=== PATIENT | male | born 1930 | race African-American/Black ===

== ENCOUNTER 2020-05-30 14:31 | Inpatient (IN) | payer OTHER ==
[~2020-05-30] VITALS: Ht 180.3 cm; Wt 95.2 kg
[2020-05-30 17:04] LABS: Basophils # (auto) 0 10 ^3/uL (0-0.2); Eosinophils # (auto) 0 10 ^3/uL (0-0.8); Hematocrit 32.6 % (41.0-53.0); Mean Corpuscular Hemoglobin 26.9 pg (28.0-32.0); Mean Corpuscular Hgb Conc. 32.4 g/dL (32.0-36.0); Monocytes # (auto) 0.5 10 ^3/uL (0-1.3); White Blood Cell 6.1 10^3/uL (4.4-10.8)
[2020-05-30 17:06] LABS: Basophils % (auto) 0.1 % (0.0-2.0); Eosinophils % (auto) 0.8 % (0.0-7.0); Hemoglobin 10.6 g/dL (13.5-17.5); Lymphocytes % (auto) 15.9 % (10.0-50.0); Mean Corpuscular Volume 83.1 fL (80.0-100.0); Monocytes % (auto) 8.6 % (0.0-12.0); Neutrophils # (auto) 4.6 10 ^3/uL (1.6-8.6); Neutrophils % (auto) 74.6 % (37.0-80.0); Platelet Count (auto) 102 10^3/uL (140-450); Red Blood Cells 3.92 10^6/uL (4.5-5.90); Red Cell Distribution Width 18.3 % (11.8-14.3)
[2020-05-30 17:14] LABS: Albumin 3.4 g/dL (3.4-5.0); BUN/Creatinine Ratio 19.2; Calcium 8.2 mg/dL (8.5-10.1)
[2020-05-30 17:19] LABS: Bilirubin, Total 0.8 mg/dL (0.2-1.0); Total Protein 7.3 g/dL (6.4-8.2)
[2020-05-30 17:24] LABS: INR 3.58 (0.9-1.15); Partial Thromboplastin Time 36.2 sec (23.0-31.2)
[2020-05-30 19:02] LABS: Urine Bacteria NONE SEEN /hpf (None Seen); Urine Blood Negative /uL (Negative); Urine Mucus FEW (None Seen); Urine WBC 1 /hpf (0 - 3)
[2020-05-30] MEDS ORDERED: ONDANSETRON HCL 4 MG/2 ML VIAL IV PRN (21:15)
[2020-05-30] MEDS ORDERED: MORPHINE SULF INJ 2 MG/ML SYRINGE 1ML IV PRN (21:15)
[2020-05-30] MEDS ORDERED: NITROGLYCERIN 0.4 MG SL TAB SL PRN (21:15)
[2020-05-30] MEDS ORDERED: ACETAMINOPHEN 325 MG TAB PO PRN (21:15)
[2020-05-30] MEDS ORDERED: TEMAZEPAM 15 MG CAP PO PRN (21:15)
[2020-05-30] MEDS ORDERED: ATORVASTATIN 20 MG TAB PO SCH (22:00)
[2020-05-31 06:37] LABS: Basophils # (auto) 0 10 ^3/uL (0-0.2); Eosinophils # (auto) 0 10 ^3/uL (0-0.8); Lymphocytes # (auto) 1.1 10 ^3/uL (0.4-5.4); Monocytes # (auto) 0.4 10 ^3/uL (0-1.3); Nucleated Red Blood Cells % 0.1 %
[2020-05-31 06:39] LABS: Eosinophils % (auto) 0.5 % (0.0-7.0); Hemoglobin 10.7 g/dL (13.5-17.5); Mean Corpuscular Hemoglobin 26.9 pg (28.0-32.0); Mean Corpuscular Hgb Conc. 32.3 g/dL (32.0-36.0); Mean Corpuscular Volume 83.2 fL (80.0-100.0); Monocytes % (auto) 6.7 % (0.0-12.0); Neutrophils # (auto) 4.5 10 ^3/uL (1.6-8.6); Neutrophils % (auto) 74.8 % (37.0-80.0); Platelet Count (auto) 108 10^3/uL (140-450); Red Blood Cells 3.97 10^6/uL (4.5-5.90)
[2020-05-31 07:02] LABS: Potassium 4.6 mmol/L (3.5-5.1)
[2020-05-31 07:03] LABS: INR 3.68 (0.9-1.15)
[2020-05-31 07:15] LABS: BUN/Creatinine Ratio 18.2; Calcium 8.8 mg/dL (8.5-10.1)
[2020-05-31] MEDS ORDERED: FUROSEMIDE 40 MG TAB PO SCH (10:00)
[2020-05-31] MEDS: METOPROLOL TARTRATE 25 MG TAB PO SCH ×2 (10:29→21:54)
[2020-05-31] MEDS: FAMOTIDINE 20 MG TAB PO SCH (10:30)
[2020-05-31] MEDS ORDERED: AZITHROMYCIN 500MG/ 250ML 250 ML IV ONE (13:15)
[2020-05-31] MEDS ORDERED: cefTRIAXone 1GM/50ML D5W 50 ML IV ONE (13:15)
[2020-05-31] MEDS: FUROSEMIDE 40 MG/4 ML VIAL IV SCH (18:13)
[2020-05-31] MEDS: ATORVASTATIN 20 MG TAB PO SCH (21:54)
[2020-05-31 22:00] VITALS: BP 103/53
[2020-05-31] MEDS ORDERED: LORazepam 2MG/ML-1ML VIAL IV PRN (22:00)
[2020-06-01 05:00] VITALS: BP 119/63
[2020-06-01] MEDS: FUROSEMIDE 40 MG/4 ML VIAL IV SCH ×2 (05:37→17:59)
[2020-06-01 06:38] LABS: Basophils # (auto) 0 10 ^3/uL (0-0.2); Basophils % (auto) 0.2 % (0.0-2.0); Hemoglobin 10.7 g/dL (13.5-17.5); Mean Corpuscular Volume 83.3 fL (80.0-100.0)
[2020-06-01 06:40] LABS: Eosinophils # (auto) 0.2 10 ^3/uL (0-0.8); Eosinophils % (auto) 4.1 % (0.0-7.0); Lymphocytes # (auto) 1.6 10 ^3/uL (0.4-5.4); Lymphocytes % (auto) 29.1 % (10.0-50.0); Mean Corpuscular Hgb Conc. 32.4 g/dL (32.0-36.0); Monocytes # (auto) 0.6 10 ^3/uL (0-1.3); Monocytes % (auto) 10.6 % (0.0-12.0); Neutrophils # (auto) 3.1 10 ^3/uL (1.6-8.6); Nucleated Red Blood Cells % 0.2 %; Platelet Count (auto) 110 10^3/uL (140-450); Red Blood Cells 3.96 10^6/uL (4.5-5.90); Red Cell Distribution Width 18.5 % (11.8-14.3); White Blood Cell 5.6 10^3/uL (4.4-10.8)
[2020-06-01 06:43] LABS: INR 3.64 (0.9-1.15)
[2020-06-01 07:02] LABS: Albumin 3.1 g/dL (3.4-5.0)
[2020-06-01 07:15] LABS: Cholesterol 109 mg/dL (< 200); HDL Cholesterol 68 mg/dL (40-59); LDL Cholesterol 37 mg/dL (< 100); Triglycerides 69 mg/dL (< 150)
[2020-06-01] MEDS ORDERED: ADENOSINE 87 MG in GIVE UN-DILUTED 0 ML IV STA (08:23)
[2020-06-01 09:27] LABS: Folate (Folic Acid) 13.08 ng/mL (5.38-24)
[2020-06-01] MEDS: FAMOTIDINE 20 MG TAB PO SCH (10:35)
[2020-06-01] MEDS: AZITHROMYCIN 500MG/ 250ML 250 ML IV SCH (10:35)
[2020-06-01] MEDS: cefTRIAXone 1GM/50ML D5W 50 ML IV SCH (10:35)
[2020-06-01] MEDS: METOPROLOL TARTRATE 25 MG TAB PO SCH ×2 (10:45→22:42)
[2020-06-01 13:00] VITALS: BP 101/44
[2020-06-01 17:06] VITALS: BP 148/74
[2020-06-01] MEDS: ALBUTEROL SULF 2.5 MG/0.5ML(0.5%) NEB SOLN NEB SCH (18:42)
[2020-06-01] MEDS: IPRATROPIUM BROM 0.5 MG/2.5ML INH SOL NEB SCH (18:42)
[2020-06-01 22:00] VITALS: BP 160/92
[2020-06-01] MEDS: ATORVASTATIN 20 MG TAB PO SCH (22:42)
[2020-06-02 05:00] VITALS: BP 119/67
[2020-06-02] MEDS: FUROSEMIDE 40 MG/4 ML VIAL IV SCH ×2 (05:41→18:05)
[2020-06-02] MEDS: ALBUTEROL SULF 2.5 MG/0.5ML(0.5%) NEB SOLN NEB SCH ×3 (06:08→19:43)
[2020-06-02] MEDS: IPRATROPIUM BROM 0.5 MG/2.5ML INH SOL NEB SCH ×3 (06:08→19:44)
[2020-06-02 07:00] LABS: Basophils # (auto) 0 10 ^3/uL (0-0.2); Eosinophils # (auto) 0.2 10 ^3/uL (0-0.8); Hemoglobin 11.2 g/dL (13.5-17.5)
[2020-06-02 07:02] LABS: Basophils % (auto) 0.6 % (0.0-2.0); Eosinophils % (auto) 4.1 % (0.0-7.0); Hematocrit 34.3 % (41.0-53.0); Lymphocytes # (auto) 1.4 10 ^3/uL (0.4-5.4); Lymphocytes % (auto) 26.1 % (10.0-50.0); Mean Corpuscular Hemoglobin 26.8 pg (28.0-32.0); Mean Corpuscular Hgb Conc. 32.6 g/dL (32.0-36.0); Mean Corpuscular Volume 82.4 fL (80.0-100.0); Monocytes # (auto) 0.7 10 ^3/uL (0-1.3); Monocytes % (auto) 12.2 % (0.0-12.0); Neutrophils # (auto) 3.1 10 ^3/uL (1.6-8.6); Nucleated Red Blood Cells % 0.2 %; Platelet Count (auto) 118 10^3/uL (140-450); Red Blood Cells 4.16 10^6/uL (4.5-5.90); Red Cell Distribution Width 18.4 % (11.8-14.3); White Blood Cell 5.5 10^3/uL (4.4-10.8)
[2020-06-02 07:20] LABS: Albumin 3.3 g/dL (3.4-5.0); Calcium 8.7 mg/dL (8.5-10.1); Potassium 4.3 mmol/L (3.5-5.1)
[2020-06-02 07:26] LABS: BUN/Creatinine Ratio 25.5; Bilirubin, Total 0.9 mg/dL (0.2-1.0); Total Protein 7.2 g/dL (6.4-8.2)
[2020-06-02 09:00] VITALS: BP 134/66
[2020-06-02] MEDS: cefTRIAXone 1GM/50ML D5W 50 ML IV SCH (09:30)
[2020-06-02] MEDS: FAMOTIDINE 20 MG TAB PO SCH (09:31)
[2020-06-02] MEDS: METOPROLOL TARTRATE 25 MG TAB PO SCH ×2 (09:31→22:23)
[2020-06-02] MEDS ORDERED: PHYTONADIONE(VitK) ORAL Susp 10mg/10ml(1mg/ml) PO ONE (10:15)
[2020-06-02] MEDS ORDERED: METO25TA93 PO (10:25)
[2020-06-02] MEDS ORDERED: ASCO500T11 PO (10:25)
[2020-06-02] MEDS ORDERED: FERR-7 PO (10:25)
[2020-06-02] MEDS ORDERED: MAGN400T40 PO (10:25)
[2020-06-02] MEDS ORDERED: LOSA-69 PO (10:25)
[2020-06-02] MEDS ORDERED: OMEP20TA PO (10:25)
[2020-06-02] MEDS ORDERED: WARF5TAB71 PO (10:25)
[2020-06-02] MEDS ORDERED: POTA1TAB61 PO (10:25)
[2020-06-02] MEDS ORDERED: FURO1TAB31 PO (10:25)
[2020-06-02] MEDS ORDERED: CYAN500T25 PO (10:25)
[2020-06-02] MEDS ORDERED: SIMV-13 PO (10:25)
[2020-06-02] MEDS ORDERED: CHOL20007 PO (10:25)
[2020-06-02] MEDS ORDERED: WARF2.5T39 PO (10:25)
[2020-06-02] MEDS ORDERED: ALBUAER3 IN (10:26)
[2020-06-02] MEDS ORDERED: FLUT250M2 INH (10:26)
[2020-06-02] MEDS ORDERED: ALBU2SYP10 PO (10:26)
[2020-06-02] MEDS: AZITHROMYCIN 500MG/ 250ML 250 ML IV SCH (11:16)
[2020-06-02 13:00] VITALS: BP 133/77
[2020-06-02 17:00] VITALS: BP 131/73
[2020-06-02 22:00] VITALS: BP 120/66
[2020-06-02] MEDS: ATORVASTATIN 20 MG TAB PO SCH (22:22)
[2020-06-03 05:00] VITALS: BP 110/53
[2020-06-03] MEDS: FUROSEMIDE 40 MG/4 ML VIAL IV SCH ×2 (06:09→18:16)
[2020-06-03] MEDS: ALBUTEROL SULF 2.5 MG/0.5ML(0.5%) NEB SOLN NEB SCH ×3 (06:33→18:33)
[2020-06-03] MEDS: IPRATROPIUM BROM 0.5 MG/2.5ML INH SOL NEB SCH ×3 (06:34→18:33)
[2020-06-03 07:53] LABS: Basophils # (auto) 0 10 ^3/uL (0-0.2); Basophils % (auto) 0.5 % (0.0-2.0); Eosinophils # (auto) 0.2 10 ^3/uL (0-0.8); Monocytes # (auto) 0.6 10 ^3/uL (0-1.3); White Blood Cell 4.8 10^3/uL (4.4-10.8)
[2020-06-03 07:56] LABS: Eosinophils % (auto) 5.1 % (0.0-7.0); Hematocrit 35.2 % (41.0-53.0); Hemoglobin 11.3 g/dL (13.5-17.5); Lymphocytes # (auto) 1.2 10 ^3/uL (0.4-5.4); Lymphocytes % (auto) 25.1 % (10.0-50.0); Mean Corpuscular Hemoglobin 26.6 pg (28.0-32.0); Monocytes % (auto) 13.3 % (0.0-12.0); Neutrophils # (auto) 2.7 10 ^3/uL (1.6-8.6); Nucleated Red Blood Cells % 0.2 %; Platelet Count (auto) 119 10^3/uL (140-450); Red Blood Cells 4.24 10^6/uL (4.5-5.90); Red Cell Distribution Width 18.2 % (11.8-14.3)
[2020-06-03 08:04] LABS: INR 1.87 (0.9-1.15)
[2020-06-03 08:10] LABS: BUN/Creatinine Ratio 24.5; Calcium 8.7 mg/dL (8.5-10.1); Potassium 3.5 mmol/L (3.5-5.1)
[2020-06-03 09:00] VITALS: BP 127/77
[2020-06-03] MEDS: FAMOTIDINE 20 MG TAB PO SCH (09:22)
[2020-06-03] MEDS: cefTRIAXone 1GM/50ML D5W 50 ML IV SCH (09:22)
[2020-06-03] MEDS: METOPROLOL TARTRATE 25 MG TAB PO SCH ×2 (09:22→22:26)
[2020-06-03] MEDS: PHYTONADIONE(VitK) ORAL Susp 10mg/10ml(1mg/ml) PO SCH (09:23)
[2020-06-03] MEDS: AZITHROMYCIN 500MG/ 250ML 250 ML IV SCH (10:52)
[2020-06-03 13:00] VITALS: BP 101/44
[2020-06-03 17:00] VITALS: BP 120/57
[2020-06-03 22:00] VITALS: BP 117/65
[2020-06-03] MEDS: ENOXAPARIN SOD 30 MG/0.3 ML SYRINGE SC SCH (22:25)
[2020-06-03] MEDS: ATORVASTATIN 20 MG TAB PO SCH (22:25)
[2020-06-04 05:00] VITALS: BP 117/59
[2020-06-04] MEDS: FUROSEMIDE 40 MG/4 ML VIAL IV SCH ×2 (05:31→18:24)
[2020-06-04] MEDS: ALBUTEROL SULF 2.5 MG/0.5ML(0.5%) NEB SOLN NEB SCH ×2 (06:00→19:08)
[2020-06-04] MEDS: IPRATROPIUM BROM 0.5 MG/2.5ML INH SOL NEB SCH ×2 (06:00→19:08)
[2020-06-04 06:10] LABS: Basophils # (auto) 0.1 10 ^3/uL (0-0.2); Hematocrit 36.1 % (41.0-53.0); Hemoglobin 11.6 g/dL (13.5-17.5); Mean Corpuscular Hgb Conc. 32.3 g/dL (32.0-36.0); Monocytes # (auto) 0.6 10 ^3/uL (0-1.3); Nucleated Red Blood Cells % 0.1 %
[2020-06-04 06:13] LABS: Basophils % (auto) 1.2 % (0.0-2.0); Eosinophils # (auto) 0.3 10 ^3/uL (0-0.8); Eosinophils % (auto) 5.1 % (0.0-7.0); Lymphocytes # (auto) 1.5 10 ^3/uL (0.4-5.4); Lymphocytes % (auto) 29.5 % (10.0-50.0); Mean Corpuscular Hemoglobin 26.7 pg (28.0-32.0); Mean Corpuscular Volume 82.8 fL (80.0-100.0); Neutrophils # (auto) 2.6 10 ^3/uL (1.6-8.6); Neutrophils % (auto) 52.2 % (37.0-80.0); Platelet Count (auto) 119 10^3/uL (140-450); Red Blood Cells 4.36 10^6/uL (4.5-5.90); Red Cell Distribution Width 18.4 % (11.8-14.3)
[2020-06-04 06:25] LABS: INR 1.49 (0.9-1.15); Partial Thromboplastin Time 33.8 sec (23.0-31.2)
[2020-06-04 06:33] LABS: Potassium 3.8 mmol/L (3.5-5.1)
[2020-06-04 06:44] LABS: BUN/Creatinine Ratio 22.7; Calcium 8.8 mg/dL (8.5-10.1)
[2020-06-04] MEDS: cefTRIAXone 1GM/50ML D5W 50 ML IV SCH (08:22)
[2020-06-04 08:25] VITALS: BP 133/54
[2020-06-04 08:48] VITALS: BP 133/54
[2020-06-04] MEDS: AZITHROMYCIN 500MG/ 250ML 250 ML IV SCH (09:28)
[2020-06-04] MEDS: PHYTONADIONE(VitK) ORAL Susp 10mg/10ml(1mg/ml) PO SCH (09:48)
[2020-06-04] MEDS: METOPROLOL TARTRATE 25 MG TAB PO SCH ×2 (09:48→22:21)
[2020-06-04] MEDS: FAMOTIDINE 20 MG TAB PO SCH (09:48)
[2020-06-04] MEDS: ENOXAPARIN SOD 30 MG/0.3 ML SYRINGE SC SCH ×2 (09:49→22:21)
[2020-06-04] MEDS ORDERED: fentaNYL CITRATE 100 MCG/2 ML VL ONE (10:17)
[2020-06-04] MEDS ORDERED: MIDAZOLAM HCL 1MG/1ML-2 ML VIAL ONE (10:17)
[2020-06-04] MEDS ORDERED: HEPARIN SODIUM (PORCINE) 5000 UNITS/ML 1ML VIAL ONE (10:17)
[2020-06-04] MEDS ORDERED: ANGIOMAX 250 MG VIAL IV ONE (10:17)
[2020-06-04] MEDS ORDERED: LIDOCAINE 2%HCL (LOCAL ANESTH.) INJ 20ML MDV ONE ×2 (10:18→11:58)
[2020-06-04] MEDS ORDERED: SODIUM CHL 0.9% 0 ML ONE (10:18)
[2020-06-04] MEDS ORDERED: IODIXANOL 320MG/ML 100ML BTL IV ONE (10:25)
[2020-06-04 16:52] VITALS: BP 128/65
[2020-06-04 22:00] VITALS: BP 147/77
[2020-06-04] MEDS: ATORVASTATIN 20 MG TAB PO SCH (22:20)
[2020-06-05 05:00] VITALS: BP 149/71
[2020-06-05] MEDS: FUROSEMIDE 40 MG/4 ML VIAL IV SCH (06:08)
[2020-06-05] MEDS: IPRATROPIUM BROM 0.5 MG/2.5ML INH SOL NEB SCH ×2 (07:34→14:15)
[2020-06-05] MEDS: ALBUTEROL SULF 2.5 MG/0.5ML(0.5%) NEB SOLN NEB SCH ×2 (07:34→14:15)
[2020-06-05] MEDS: FAMOTIDINE 20 MG TAB PO SCH (09:12)
[2020-06-05] MEDS: cefTRIAXone 1GM/50ML D5W 50 ML IV SCH (09:12)
[2020-06-05] MEDS: METOPROLOL TARTRATE 25 MG TAB PO SCH (09:15)
[2020-06-05] MEDS: AZITHROMYCIN 500MG/ 250ML 250 ML IV SCH (09:16)
[2020-06-05] MEDS: ENOXAPARIN SOD 30 MG/0.3 ML SYRINGE SC SCH (09:16)
[2020-06-05] MEDS: PHYTONADIONE(VitK) ORAL Susp 10mg/10ml(1mg/ml) PO SCH (09:20)
[2020-06-05 14:44] VITALS: BP 126/71
== END 2020-06-05 17:00 | disposition home or self-care (01) | DRG 280 ==
LOC: EDBD 14:31 → ER 14:31 → TELE 14:32 → TELE-WESTW 05-31 15:55 → TELE-CENTR 06-04 21:38
PROVIDERS: ADMIT Nurse Practitioner; ATTEND Family Medicine
PROC: 4A023N8 Measurement of Cardiac Sampling and Pressure, Bilateral, Percutaneous Approach (ICD-10-PCS; principal; 2020-06-04)
PROC: B211YZZ Fluoroscopy of Multiple Coronary Arteries using Other Contrast (ICD-10-PCS; 2020-06-04)
PROC: B215YZZ Fluoroscopy of Left Heart using Other Contrast (ICD-10-PCS; 2020-06-04)
PROC: 4A033BC Measurement of Arterial Pressure, Coronary, Percutaneous Approach (ICD-10-PCS; 2020-06-04)
DX: R55 Syncope and collapse (principal); I21.A1 Myocardial infarction type 2; J18.9 Pneumonia, unspecified organism; I50.43 Acute on chronic combined systolic (congestive) and diastolic (congestive) heart failure; I47.2 Ventricular tachycardia; I48.92 Unspecified atrial flutter; D68.9 Coagulation defect, unspecified; I48.91 Unspecified atrial fibrillation; I11.0 Hypertensive heart disease with heart failure; Z20.828 Contact with and (suspected) exposure to other viral communicable diseases; D69.6 Thrombocytopenia, unspecified; D64.9 Anemia, unspecified; E78.5 Hyperlipidemia, unspecified; E66.9 Obesity, unspecified; I65.22 Occlusion and stenosis of left carotid artery; E78.00 Pure hypercholesterolemia, unspecified; I07.1 Rheumatic tricuspid insufficiency; I67.2 Cerebral atherosclerosis; F17.200 Nicotine dependence, unspecified, uncomplicated; G47.00 Insomnia, unspecified; H54.8 Legal blindness, as defined in USA; Z88.8 Allergy status to other drugs, medicaments and biological substances; Z88.6 Allergy status to analgesic agent; Z68.29 Body mass index [BMI] 29.0-29.9, adult; Z79.01 Long term (current) use of anticoagulants; Z79.899 Other long term (current) drug therapy; Z82.0 Family history of epilepsy and other diseases of the nervous system; Z82.49 Family history of ischemic heart disease and other diseases of the circulatory system; Z86.73 Personal history of transient ischemic attack (TIA), and cerebral infarction without residual deficits
CPT/HCPCS: 36415; 70450; 70551; 71045; 78452; 80048; 80053; 80061; 81001; 82040; 82565; 82607; 82746; 83605; 83735; 83880; 84443; 84484; 85025; 85379; 85610; 85730; 86850; 86900; 86901; 87040; 87426; 93005; 93017; 93306; 93460; 93571; 93886; 94640; 97163; 99152; 99153; C1751; G0378; J0153; J0696; J2250; Q9967